=== PATIENT | male | born 1965 | race African-American/Black ===

== ENCOUNTER 2018-04-29 17:32 | Emergency (ER) | payer OTHER ==
[2018-04-29 17:44] VITALS: BP 142/78; PULSE 92; TEMP 98; BMI 33.4
--- NOTE | 2018-04-29 17:46 | PDOC ---
Rapid Medical Evaluation Time Seen by Provider: 04/29/18 17:39 Medical Evaluation: Allergies Allergy/AdvReac Type Severity Reaction Status Date / Time No Known Allergies Allergy Verified 08/01/16 08:10 04/29/18 17:39 I have performed a brief in-person evaluation of this patient. The patient presents with a chief complaint of: Left rib pain X 3 days, no trauma or rash, no cp or SOB Pertinent physical exam findings:+ tenderness on palpation Left rib area, no rash I have ordered the following: EKG, cxr, labs/cardiac workup The patient will proceed to the fast track for further evaluation. 04/29/18 17:46
--- NOTE | 2018-05-01 13:05 | EKG ---
Test Reason : Blood Pressure : / mmHG Vent. Rate : 087 BPM Atrial Rate : 087 BPM P-R Int : 166 ms QRS Dur : 090 ms QT Int : 342 ms P-R-T Axes : 040 044 011 degrees QTc Int : 411 ms NORMAL SINUS RHYTHM NONSPECIFIC T WAVE ABNORMALITY ABNORMAL ECG WHEN COMPARED WITH ECG OF 01-AUG-2016 10:43, NO SIGNIFICANT CHANGE WAS FOUND Confirmed by JOVANY MCKEON MD ([id number]) on 05/01/2018 1:05:07 PM Referred By: Confirmed By:JOVANY MCKEON MD
== END 2018-04-29 22:02 | disposition left against medical advice (07) ==
LOC: JER 17:32
DX: Z53.21 Procedure and treatment not carried out due to patient leaving prior to being seen by health care provider (principal)
CPT/HCPCS: 93005; 93010; 99281-25

== ENCOUNTER 2018-05-17 17:11 | Emergency (ER) | payer OTHER ==
--- NOTE | 2018-05-17 17:39 | PDOC ---
Rapid Medical Evaluation Time Seen by Provider: 05/17/18 17:39 Medical Evaluation: Allergies Allergy/AdvReac Type Severity Reaction Status Date / Time No Known Allergies Allergy Verified 05/17/18 17:39 05/17/18 17:39 I have performed a brief in-person evaluation of this patient. The patient presents with a chief complaint of: L burning pain to L chest x 1 month, seen here 04/22 for same and LBME. EKG done at triage was unremarkable then per records. H/o NIDDM Pertinent physical exam findings:unremarkable I have ordered the following:ekg/labs/labs The patient will proceed to the ED for further evaluation. 05/17/18 17:41 05/17/18 17:42 Discharge Disposition - Diagnosis Left sided chest pain - Referrals - Patient Instructions - Post Discharge Activity
[2018-05-17 17:44] VITALS: BP 152/86; PULSE 90; TEMP 98.5; BMI 34.7
--- NOTE | 2018-05-17 18:37 | PDOC ---
History of Present Illness - General Chief Complaint: Pain Stated Complaint: LT RIBCAGE PAIN Time Seen by Provider: 05/17/18 17:39 History Source: Patient Exam Limitations: No Limitations - History of Present Illness Initial Comments: 52 YOM with h/o NIDDM on metformin who p/w constant non-radiating burning left sided chest pain (versus LUQ pain) for the past month which is worse with palpation/pushing on the area. He presented for similar symptoms to our ED on and had a triage EKG showing nothing acute, but he LBME. He notes occasional diarrhea but denies any fever, chills, nausea, vomiting, constipation , leg swelling, palpitations, SOB, headache, dizziness, sweats, rash, h/o smoking, family h/o heart disease, etc. He has not been taking any medications for the pain. Past History - Past Medical History Allergies/Adverse Reactions: Allergies Allergy/AdvReac Type Severity Reaction Status Date / Time No Known Allergies Allergy Verified 05/17/18 17:39 Home Medications: Ambulatory Orders metFORMIN HCL [Glucophage -] 500 mg PO BID 06/14/16 COPD: No Diabetes: Yes - Suicide/Smoking/Psychosocial Hx Smoking History: Never smoked Hx Alcohol Use: No Drug/Substance Use Hx: No Substance Use Type: None Review of Systems - Review of Systems Able to Perform ROS?: Yes Constitutional: No: Chills, Fever, Unexplained wgt Loss HEENTM: No: Nose Congestion, Throat Pain Respiratory: No: Cough, Shortness of Breath Cardiac (ROS): Yes: Chest Pain. No: Palpitations ABD/GI: Yes: Diarrhea. No: Constipated, Nausea, Vomiting : No: Burning, Dysuria Musculoskeletal: No: Back Pain, Neck Pain Integumentary: No: Bruising, Rash Neurological: No: Headache, Numbness, Tingling, Weakness, Dizziness Endocrine: No: Unexplained Weight Gain, Unexplained Weight Loss *Physical Exam - Vital Signs Last Vital Signs Temp Pulse Resp BP Pulse Ox 98.5 F 90 19 152/86 99 05/17/18 17:39 05/17/18 17:39 05/17/18 17:39 05/17/18 17:39 05/17/18 17:39 - Physical Exam General Appearance: Yes: Nourished, Appropriately Dressed, Other (nontoxic and well appearing adult male in no distress who answers questions appropriately). No: Apparent Distress HEENT: positive: EOMI, NIYAH, Normal ENT Inspection, Normal Voice, Hearing Grossly Normal. negative: Scleral Icterus (R), Scleral Icterus (L), Nasal Congestion Neck: positive: Trachea midline, Supple. negative: Tender, Rigid Respiratory/Chest: positive: Lungs Clear, Normal Breath Sounds. negative: Respiratory Distress, Crackles, Rhonchi, Stridor, Wheezing Cardiovascular: positive: Regular Rhythm, Regular Rate, S1, S2, Other (mild left inferior chest ttp). negative: Edema, JVD, Murmur Gastrointestinal/Abdominal: positive: Normal Bowel Sounds, Soft, Protuberent. negative: Tender (mild LUQ ttp), Organomegaly, Pulsatile Mass, Guarding Musculoskeletal: positive: Normal Inspection. negative: Decreased Range of Motion, Vertebral Tenderness Extremity: positive: Normal Capillary Refill, Normal Inspection, Normal Range of Motion. negative: Tender, Cyanosis Integumentary: positive: Normal Color, Dry, Warm. negative: Erythema, Rash, Bruising Neurologic: positive: dry cleaner II-XII NML intact, Fully Oriented, Alert, Normal Mood/ Affect, Normal Response, Motor Strength 5/5 Heart Score/ECG Review - History History: Slightly suspicious - Electrocardiogram EKG: Normal - Age Age: 45-65 - Risk Factors Risk Factors Heart Score: Yes Hx Diabetes, Yes Hx Obesity Based on the list above the patient has:: 1-2 risk factors - Troponin Troponin: </= normal limit - Score Heart Score - Total: 2 ED Treatment Course - LABORATORY CBC & Chemistry Diagram: 05/17/18 18:38 05/17/18 18:38 Medical Decision Making - Medical Decision Making Adult male Pt p/w left-sided abdominal pain. Initial Vital Signs Temp Pulse Resp BP Pulse Ox 98.5 F 90 19 152/86 99 05/17/18 17:39 05/17/18 17:39 05/17/18 17:39 05/17/18 17:39 05/17/18 17:39 Exam: Results as noted in Physical Exam section. DDX IBNLT: diverticulitis wwo abscess or perforation, colitis, ACS, atypical PNA , renal colic, obstructive uropathy, UTI/pyelonephritis, appendicitis, AAA/AD, hernia, malignancy, pancreatitis, gastritis, PUD, ACS, SBO, bowel ischemia, bowel perforation, cholecystitis, musculoskeletal, constipation, etc. W/U ordered: CBCD CMP Lipase Cardiac panel UA UCx TX ordered: Unlikely renal stone as Pt notes no clinical hematuria, has no CVA tenderness. Unlikely UTI/pyelonephritis as Pt has no dysuria, strange colors/smells, no h/o recurrent UTI. Unlikely diverticulitis as Pt has no known h/o diverticulosis/diverticulitis. Unlikely colitis as clinically Pts abdomen is not distended/no ascites, no fever, other VS wnl. Unlikely appendicitis as Pt has no fever, RLQ or umbilical abdominal pain, or anorexia. Unlikely AAA/AD as no midline pulsatile mass or h/o AAA/AD, denies h/o HTN or connective tissue d/o. Unlikely testicular torsion as Pt has no high-riding testicle, no tenderness, no testicular/scrotal swelling. Unlikely epididymitis or orchitis as Pt has no testicular or epididymis tenderness. Unlikely urethritis as Pt denies penile burning on urination, states little concern for STI, no hx reported. Unlikely hernia as Pt has no inguinal hernia on palpation with cough, no outwardly palpable hernia. Unlikely malignancy as Pt has no palpable mass, no reported recent B symptoms. Unlikely pancreatitis as Pt denies EtOH use, h/o gallstones, no known hypercalcemia. Unlikely gastritis as Pt denies h/o significant GERD, no overuse of EtOH. Unlikely PUD as Pt does not report relief of pain ~2 hours postprandially or with antacids. Unlikely ACS as Pt has few risk factors, no associated SOB or typical arm/neck radiation. Unlikely SBO as Pt has been passing stool and gas normally per their baseline. Unlikely mesenteric ischemia as Pt has no known A-fib or coagulopathy, no pain out of proportion. Unlikely bowel perforation as Pt does not appear to have acute abdomen, no peritoneal signs. Unlikely cholecystitis as no postprandial worsening. US: Labs: Reassessment: Repeat VS: ADMIT The Pts symptoms persist despite ED treatments. The Pt is unsafe for discharge at this time. They require further hospital observation, workup, and treatment. Microblog sent to [facility] for admission. Spoke with [facility], in agreement Pt to be admitted to Decision to Admit order placed to covering attending DISCHARGE The Pt has gotten significant relief of symptoms with ED medications. Workup is not concerning for emergency-level pathology at this time. The Pt is appropriate for discharge with close outpatient follow up. They are comfortable with this plan and will follow up with their PCP in 1-3 days. Specific return precautions are discussed and they will come back to the ER if necessary. *DC/Admit/Observation/Transfer Diagnosis at time of Disposition: Left sided chest pain - Discharge Dispostion Disposition: HOME Condition at time of disposition: Stable Decision to Admit order: No - Referrals Referrals: ON STAFF,NOT [Primary Care Provider] - - Patient Instructions Printed Discharge Instructions: DI for Chest Pain Additional Instructions: You were seen in the ER for chest/rib pain. We did lab work on your blood and urine, an electrocardiogram, and a chest x-ray, and we did not find any concerning abnormalities. After our assessment, we do not believe you are having a medical emergency at this time, and we believe you are safe to go home. Take over the counter pain medications for your pain, as instructed on the medication label. Please follow up with your regular PCP doctor in 1-3 days. Call their clinic as soon as possible, tell them you were seen in the ER, and tell them you need an appointment. If you have any new or worsening symptoms , especially worsening chest pain, jaw pain, shoulder/arm pain, shortness of breath, sweats, nausea, loss of consciousness, palpitations, fever, chills, diarrhea, rectal bleeding, or other symptoms, please come back to the ER at any time (24 hours a day). If you are having severe or life threatening symptoms, or symptoms that make it unsafe to drive or have someone drive you, please call 911. - Post Discharge Activity
[2018-05-17 18:50] LABS: BASO % 0.1 % (0-2.0); HEMATOCRIT 41.1 % (35.4-49); HEMOGLOBIN 13.9 GM/dL (11.7-16.9); LYMPH % 39.5 % (8-40); MCH 29.3 pg (25.7-33.7); MCHC 33.8 g/dl (32.0-35.9); MEAN CELL VOLUME 86.6 fl (80-96); MEAN PLT VOLUME 8.8 fl (7.5-11.1); MONO % 11.1 % (3.8-10.2); NEUT % 45.3 % (42.8-82.8); PLATELET COUNT 229 K/MM3 (134-434); RBC 4.74 M/mm3 (4.00-5.60); RDW 13.1 % (11.9-15.9); WHITE BLOOD COUNT 5.2 K/mm3 (4.0-10.0)
[2018-05-17 19:47] LABS: ALBUMIN 3.8 g/dl (3.4-5.0); ANION GAP 10 (8-16); BLOOD UREA NITROGEN 12 mg/dL (7-18); CALCIUM 9.2 mg/dL (8.5-10.1); CHLORIDE 103 mmol/L (98-107); CO2 28 mmol/L (21-32); GLUCOSE,RANDOM 240 mg/dL (74-106); SGOT/AST 13 U/L (15-37); SGPT/ALT 21 U/L (12-78); SODIUM 141 mmol/L (136-145)
[2018-05-17 19:50] LABS: ALK PHOS 87 U/L (45-117); BILIRUBIN,TOTAL 0.7 mg/dL (0.2-1.0); TOT PROT 7.7 g/dl (6.4-8.2)
--- NOTE | 2018-05-17 19:50 | PDOC ---
Attending Attestation - Resident Resident Name: EmileNiki - ED Attending Attestation I have performed the following: I have examined & evaluated the patient, The case was reviewed & discussed with the resident, I agree w/resident's findings & plan - HPI HPI: 05/17/18 19:44 52-year-old male with history of well-controlled diabetes presents with about 3 weeks of constant left rib pain. Patient presented here on 04/27, had an EKG but than left before full evaluation. Reports noting very localized left anterior lower rib discomfort without rash or swelling, not positional, and not associated with any cardiopulmonary, GI (baseline loose stool because he drinks a lot of prune juice, nonbloody), or complaints. He has not taken anything for pain, presents for evaluation. never had egd/c-scope, no h/o rib injury. - Physicial Exam PE: 05/17/18 19:47 Vital signs normal Very well-appearing, comfortable and speaking full sentences Lungs are clear, heart is regular Very localized pinpoint discomfort over the anterolateral left lower floating ribs around ribs 10, no crepitus or deformity or step-off. No rash. No bruising or soft tissue swelling. No CVA tenderness, the abdomen is completely nontender without guarding or rebound - Medical Decision Making 05/17/18 19:47 52-year-old male with 3 weeks of very localized left rib pain, no other red flags on history or physical exam. Symptoms and signs localized to the left rib , which may be consistent with rib bruise versus cartilage bruise/fracture. No pulmonary or intra-abdominal findings. We'll check labs and urinalysis, EKG and chest x-ray If above is within normal limits, no indication for emergent imaging Would trial course of NSAIDs and PMD follow-up Heart Score/ECG Review #1 ECG reviewed & interpreted by me at: 18:38 General ECG Interpretation: Sinus Rhythm, Normal Rate (81), Normal Intervals ( qtc 408), No acute ischemic changes
--- NOTE | 2018-05-20 20:24 | EKG ---
Test Reason : Blood Pressure : / mmHG Vent. Rate : 081 BPM Atrial Rate : 081 BPM P-R Int : 170 ms QRS Dur : 092 ms QT Int : 352 ms P-R-T Axes : 036 026 016 degrees QTc Int : 408 ms NORMAL SINUS RHYTHM NORMAL ECG WHEN COMPARED WITH ECG OF 29-APR-2018 17:51, NO SIGNIFICANT CHANGE WAS FOUND Confirmed by MD YKLE, ADRIENNE ([id number]) on 05/20/2018 8:24:33 PM Referred By: Confirmed By:ADRIENNE WRIGHT MD
== END 2018-05-17 20:38 | disposition home or self-care (01) ==
LOC: JER 17:11
DX: R07.89 Other chest pain (principal); E11.9 Type 2 diabetes mellitus without complications; Z79.84 Long term (current) use of oral hypoglycemic drugs
CPT/HCPCS: 36415; 71046-TC-FY; 80053; 82550; 83690; 84484; 85025; 93005; 93010; 99284-25

== ENCOUNTER 2019-01-03 16:14 | Emergency (ER) | payer OTHER ==
--- NOTE | 2019-01-03 16:32 | PDOC ---
Rapid Medical Evaluation Chief Complaint: Injury Time Seen by Provider: 01/03/19 16:31 Medical Evaluation: Allergies Allergy/AdvReac Type Severity Reaction Status Date / Time No Known Allergies Allergy Verified 01/03/19 16:31 01/03/19 16:31 I have performed a brief in-person evaluation of this patient. The patient presents with a chief complaint of: S[place]IV[place] s/p mechanical fall Pertinent physical exam findings:NAD I have ordered the following:CT The patient will proceed to the ED for further evaluation. Discharge Disposition - Diagnosis Closed head injury - Referrals - Patient Instructions - Post Discharge Activity
[2019-01-03 16:34] VITALS: BP 122/83; PULSE 73; TEMP 98.2
[2019-01-03] MEDS ORDERED: IBUPROFEN 600 MG TABLET (FP) PO ONE ×2 (18:11→18:12)
--- NOTE | 2019-01-03 18:11 | PDOC ---
History of Present Illness - General Chief Complaint: Injury Stated Complaint: FALL/HITTING BK OF THE HEAD Time Seen by Provider: 01/03/19 16:31 History Source: Patient Exam Limitations: No Limitations - History of Present Illness Initial Comments: 01/03/19 19:20 Patient is a 53-year-old male past medical history of hypertension, who presents to the emergency department today status post slip and fall at home. Patient states he was in the bathtub when he slipped and hit the back of his head on the tub. Denies loss of consciousness, dizziness and lightheadedness. Patient did not vomit today. He states that he still has a headache to the occipital region. , Past History - Travel Traveled outside of the country in the last 30 days: No Close contact w/someone who was outside of country & ill: No - Past Medical History Allergies/Adverse Reactions: Allergies Allergy/AdvReac Type Severity Reaction Status Date / Time No Known Allergies Allergy Verified 01/03/19 16:31 Home Medications: Ambulatory Orders metFORMIN HCL [Glucophage -] 500 mg PO BID 06/14/16 COPD: No Diabetes: Yes (NIDM) - Suicide/Smoking/Psychosocial Hx Smoking History: Never smoked Information on smoking cessation initiated: No Hx Alcohol Use: No Drug/Substance Use Hx: No Substance Use Type: None Review of Systems - Review of Systems Able to Perform ROS?: Yes Comments:: 01/03/19 18:08 CONSTITUTIONAL: Absent: fever, chills, diaphoresis, generalized weakness, malaise, loss of appetite HEENT: Absent: rhinorrhea, nasal congestion, throat pain, throat swelling, difficulty swallowing, mouth swelling, ear pain, eye pain, visual Changes CARDIOVASCULAR: Absent: chest pain, loss of consciousness, palpitations, irregular heart rate, peripheral edema RESPIRATORY: Absent: cough, shortness of breath, dyspnea with exertion, orthopnea, wheezing, stridor, hemoptysis GASTROINTESTINAL: Absent: abdominal pain, abdominal distension, nausea, vomiting, diarrhea, constipation, melena, hematochezia GENITOURINARY: Absent: dysuria, frequency, urgency, hesitancy, hematuria, flank pain, genital pain MUSCULOSKELETAL: Absent: myalgia, arthralgia, joint swelling SKIN: Absent: rash, itching, pallor HEMATOLOGIC/IMMUNOLOGIC: Absent: easy bleeding, easy bruising, lymphadenopathy, frequent infections ENDOCRINE: Absent: unexplained weight gain, unexplained weight loss, heat intolerance, cold intolerance NEUROLOGIC: Present: headache Absent: focal weakness or paresthesias, dizziness, unsteady gait, seizure, mental status changes, bladder or bowel incontinence PSYCHIATRIC: Absent: anxiety, depression, suicidal or homicidal ideation, hallucinations. Is the patient limited Mauritian proficient: No *Physical Exam - Vital Signs Last Vital Signs Temp Pulse Resp BP Pulse Ox 98.2 F 73 17 122/83 100 01/03/19 16:32 01/03/19 16:32 01/03/19 16:32 01/03/19 16:32 01/03/19 16:32 - Physical Exam Comments: 01/03/19 18:08 GENERAL: Well developed, well nourished. Awake and alert. No acute distress. HEENT: Normocephalic, atraumatic. PERRLA, EOMI. No conjunctival pallor. Sclera are non- icteric. Moist mucous membranes. Oropharynx is clear. NECK: Supple. Full ROM. No JVD. Carotid pulses 2+ and symmetric, without bruits. No thyromegaly. No lymphadenopathy. CARDIOVASCULAR: Regular rate and rhythm. No murmurs, rubs, or gallops. Distal pulses are 2+ and symmetric. PULMONARY: No evidence of respiratory distress. Lungs clear to auscultation bilaterally. No wheezing, rales or rhonchi. ABDOMINAL: Soft. Non-tender. Non-distended. No rebound or guarding. No organomegaly. Normoactive bowel sounds. MUSCULOSKELETAL Normal range of motion at all joints. No bony deformities or tenderness. No CVA tenderness. EXTREMITIES: No cyanosis. No clubbing. No edema. No calf tenderness. SKIN: Warm and dry. Normal capillary refill. No rashes. No jaundice. NEUROLOGICAL: Alert, awake, appropriate. Cranial nerves 2-12 intact. No deficits to light touch and temperature in face, upper extremities and lower extremities. No motor deficits in the in face, upper extremities and lower extremities. Normoreflexic in the upper and lower extremities. Normal speech. Toes are down- going bilaterally. Gait is normal without ataxia. PSYCHIATRIC: Cooperative. Good eye contact. Appropriate mood and affect. Moderate Sedation - Procedure Monitoring Vital Signs: Procedure Monitoring Vital Signs Temperature 98.2 F 01/03/19 16:32 Pulse Rate 73 01/03/19 16:32 Respiratory Rate 17 01/03/19 16:32 Blood Pressure 122/83 01/03/19 16:32 O2 Sat by Pulse Oximetry (%) 100 01/03/19 16:32 Medical Decision Making - Medical Decision Making 01/03/19 19:21 Patient is a 53-year-old male who presents to the ER for headache status post slip and fall at home. Patient is neurologically intact with no focal deficits. No LOC at time of fall. Head CT ordered from [facility] is negative for acute pathology or fracture. Motrin given with relief of symptoms. Possible concussion. Discharge home with neurology follow-up. I discussed the physical exam findings, ancillary test results and final diagnoses with the patient. I answered all of the patient's questions. The patient was satisfied with the care received and felt comfortable with the discharge plan and treatment plan. The Patient agrees to follow up with the primary care physician/specialist within 24-72 hours. Return precautions were given. *DC/Admit/Observation/Transfer Diagnosis at time of Disposition: Closed head injury Qualifiers: Encounter type: initial encounter Qualified Code(s): S09.90XA - Unspecified injury of head, initial encounter Fall Qualifiers: Encounter type: initial encounter Qualified Code(s): W19.XXXA - Unspecified fall, initial encounter - Discharge Dispostion Disposition: HOME Condition at time of disposition: Stable Decision to Admit order: No - Referrals Referrals: Roddy You DO [Staff Physician] - - Patient Instructions Printed Discharge Instructions: DI for Closed Head Injury Additional Instructions: You were evaluated for your fall today. Your CAT scan was normal. There are no broken bones or brain bleeds. You may take Motrin 600 mg every 6 hours as needed for pain. Please avoid screens for the next 24-48 hours to help with her headache. Your symptoms do not resolve in a week please follow-up with neurology as this could be a concussion. Return to the ER for worsening headache, weakness, dizziness or if you have any changes in your symptoms. - Post Discharge Activity Forms/Work/School Notes: Back to Work
== END 2019-01-03 18:15 | disposition home or self-care (01) ==
LOC: JERFT 16:14
DX: R51 Headache (principal); S09.8XXA Other specified injuries of head, initial encounter; W18.2XXA Fall in (into) shower or empty bathtub, initial encounter; Y93.E1 Activity, personal bathing and showering; Y92.031 Bathroom in apartment as the place of occurrence of the external cause; Y99.8 Other external cause status
CPT/HCPCS: 70450-TC; 99281-25

== ENCOUNTER 2020-01-12 11:20 | Emergency (ER) | payer OTHER ==
[2020-01-12 11:45] VITALS: BP 150/75; PULSE 94; TEMP 98.5; BMI 32.2
--- NOTE | 2020-01-12 12:11 | PDOC ---
History of Present Illness - General Chief Complaint: Cold Symptoms Stated Complaint: COLD SYMPTOMS Time Seen by Provider: 01/12/20 11:46 History Source: Patient Exam Limitations: No Limitations - History of Present Illness Initial Comments: 01/12/20 12:08 54 year old male with medical history of DM and no surgical history presents with complaints of dry cough, chest pain with forceful coughing, fever, and headaches x 3 days. Denies sore throat, travel or ill contacts Is this a multiple visit Asthma Patient?: No Timing/Duration: reports: other (3 days) Severity: reports: mild Possible Cause: Yes: no prior episodes Modifying Factors: improves with: other Associated Symptoms: reports: cough, fever/chills. denies: sore throat Past History - Travel Traveled outside of the country in the last 30 days: No Close contact w/someone who was outside of country & ill: No - Past Medical History Allergies/Adverse Reactions: Allergies Allergy/AdvReac Type Severity Reaction Status Date / Time No Known Allergies Allergy Verified 01/03/19 16:31 Home Medications: Ambulatory Orders metFORMIN HCL [Glucophage -] 500 mg PO BID 06/14/16 Guaifenesin Dm [Robitussin Dm -] 10 ml PO Q8H #1 bottle 01/12/20 Ibuprofen 600 mg PO TID #21 tablet 01/12/20 Oseltamivir Phosphate [Tamiflu -] 75 mg PO BID #10 capsule 01/12/20 COPD: No Diabetes: Yes (NIDM) - Psycho Social/Smoking Cessation Hx Smoking History: Never smoked Information on smoking cessation initiated: No Hx Alcohol Use: No Drug/Substance Use Hx: No Substance Use Type: None Respiratory Specific PMHX - Complaint Specific PMHX Hx Airway Support: No Hx Asthma: No Hx Vaping: No Hx Exposure to Respiratory Irritants: No Hx Pneumonia: No Hx Pulmonary Embolus: No Review of Systems - Review of Systems Able to Perform ROS?: Yes Is the patient limited Malay proficient: No Constitutional: Yes: Chills, Fever, Malaise HEENTM: Yes: Nose Congestion. No: Throat Pain Respiratory: Yes: Cough. No: Shortness of Breath, Productive cough Cardiac (ROS): Yes: Chest Pain (with coughing ) ABD/GI: No: Constipated, Diarrhea, Poor Appetite : No: Dysuria, Discharge, Incontinence Musculoskeletal: No: Back Pain, Gout, Joint Pain, Muscle Pain Integumentary: No: Bruising, Change in Color, Dryness, Erythema Neurological: No: Headache, Numbness Psychiatric: No: Frequent Crying *Physical Exam - Vital Signs Last Vital Signs Temp Pulse Resp BP Pulse Ox 98.5 F 94 H 17 150/75 98 01/12/20 11:42 01/12/20 11:42 01/12/20 11:42 01/12/20 11:42 01/12/20 11:42 - Physical Exam General Appearance: Yes: Nourished, Appropriately Dressed HEENT: positive: TMs Normal, Pharynx Normal. negative: Rhinorrhea Neck: positive: Supple. negative: Lymphadenopathy (R), Lymphadenopathy (L) Respiratory/Chest: positive: Lungs Clear Cardiovascular: positive: Regular Rhythm, Regular Rate Extremity: positive: Normal Capillary Refill Neurologic: positive: Fully Oriented, Alert Medical Decision Making - Medical Decision Making 01/12/20 12:15 54 year old male with medical history of DM and no surgical history presents with complaints of dry cough, chest pain with forceful coughing, fever, and headaches x 3 days. Denies sore throat, travel or ill contacts Flu-like symptoms -ekg -ibuprofen -flu swab 01/12/20 12:50 + influenza A rx: robitussin ibuprofen tamiflu Discharge - Discharge Information Problems reviewed: Yes Clinical Impression/Diagnosis: Influenza A Condition: Good Disposition: HOME - Admission No - Additional Discharge Information Prescriptions: Ibuprofen 600 mg PO TID #21 tablet Guaifenesin Dm [Robitussin Dm -] 10 ml PO Q8H #1 bottle Oseltamivir Phosphate [Tamiflu -] 75 mg PO BID #10 capsule - Follow up/Referral Referrals: Trang Jansen MD [Primary Care Provider] - (call for follow up appointmen t ) - Patient Discharge Instructions Patient Printed Discharge Instructions: Influenza Additional Instructions: Rest Drink plenty fluids Avoid children, elderly and females May take ibuprofen for body aches - Post Discharge Activity Work/Back to School Note: Back to Work
[2020-01-12] MEDS ORDERED: IBUPROFEN 600 MG TABLET (FP) PO ONE ×2 (12:15→12:18)
--- NOTE | 2020-01-12 13:55 | EKG ---
Test Reason : Blood Pressure : / mmHG Vent. Rate : 090 BPM Atrial Rate : 090 BPM P-R Int : 160 ms QRS Dur : 090 ms QT Int : 334 ms P-R-T Axes : 050 062 037 degrees QTc Int : 408 ms NORMAL SINUS RHYTHM NORMAL ECG WHEN COMPARED WITH ECG OF 17-MAY-2018 18:38, NO SIGNIFICANT CHANGE WAS FOUND Confirmed by Melania Kaufman ([id number]) on 01/12/2020 1:54:57 PM Referred By: Confirmed By:Melania Kaufman
== END 2020-01-12 13:00 | disposition home or self-care (01) ==
LOC: JERFT 11:20
DX: J09.X2 Influenza due to identified novel influenza A virus with other respiratory manifestations (principal); E11.9 Type 2 diabetes mellitus without complications; Z79.84 Long term (current) use of oral hypoglycemic drugs
CPT/HCPCS: 87804; 93005; 93010; 99283-25

== ENCOUNTER 2021-07-23 18:38 | Emergency (ER) | payer OTHER ==
[2021-07-23 18:45] VITALS: BP 151/95; PULSE 106; TEMP 98.4; BMI 33.6
[2021-07-23] MEDS ORDERED: ACETAMINOPHEN 1000 MG/100 ML VIAL (NON FORMULARY) IVPB ONE (20:20)
[2021-07-23] MEDS ORDERED: LACTATED RINGERS SOLUTION 1000 ML INFUS.BAG IV ONE (20:20)
[2021-07-23] MEDS ORDERED: ACETAMINOPHEN INJECTION 100 ML IVPB ONE (20:28)
[2021-07-23 20:29] LABS: BASO % 0.3 % (0-2.0); EOS % 4.4 % (0-4.5); HEMOGLOBIN 14.5 GM/dL (11.7-16.9); LYMPH % 38.5 % (8-40); MCH 30.6 pg (25.7-33.7); MCHC 35.3 g/dl (32.0-35.9); MEAN CELL VOLUME 86.8 fl (80-96); MEAN PLT VOLUME 8.6 fl (7.5-11.1); MONO % 11.7 % (3.8-10.2); NEUT % 45.1 % (42.8-82.8); PLATELET COUNT 201 10^3/uL (134-434); RBC 4.72 M/mm3 (4.00-5.60); WHITE BLOOD COUNT 5.2 K/mm3 (4.0-10.0)
[2021-07-23 20:45] LABS: URINE APPEARANCE CLEAR; URINE BILIRUBIN NEGATIVE (NEGATIVE); URINE COLOR YELLOW; URINE GLUCOSE (UA) NEGATIVE (NEGATIVE); URINE KETONE NEGATIVE (NEGATIVE); URINE LEUK ESTERASE NEGATIVE (NEGATIVE); URINE NITRITE NEGATIVE (NEGATIVE); URINE PROTEIN NEGATIVE (NEGATIVE)
[2021-07-23 20:48] LABS: CHLORIDE 103 mmol/L (98-107); SODIUM 136 mmol/L (136-145)
[2021-07-23 20:50] LABS: ALBUMIN 3.6 g/dl (3.4-5.0); ANION GAP 6 MMOL/L (8-16); BLOOD UREA NITROGEN 10.1 mg/dL (7-18); CO2 27 mmol/L (21-32)
[2021-07-23 20:51] LABS: GLUCOSE,RANDOM 140 mg/dL (74-106)
[2021-07-23 20:53] LABS: SGOT/AST 34 U/L (15-37); SGPT/ALT 32 U/L (13-61)
[2021-07-23 20:54] LABS: CREATININE 0.9 mg/dL (0.55-1.3)
[2021-07-23 20:55] LABS: BILIRUBIN,TOTAL 1.2 mg/dL (0.2-1)
[2021-07-23 20:56] LABS: ALK PHOS 75 U/L (45-117)
== END 2021-07-23 23:35 | disposition home or self-care (01) ==
LOC: JER 18:38
PROC: 3E033NZ Introduction of Analgesics, Hypnotics, Sedatives into Peripheral Vein, Percutaneous Approach (ICD-10-PCS; principal; 2021-07-23)
DX: R51.9 Headache, unspecified (principal); R42 Dizziness and giddiness
CPT/HCPCS: 36415; 70450-TC; 80053; 81003; 82550; 82553; 84484; 85025; 93005; 93010; 99285-25; J0131

== ENCOUNTER 2023-10-10 08:40 | Emergency (ER) | payer OTHER, BC ==
[2023-10-10 08:53] VITALS: BP 140/82; PULSE 90; RESP 18; TEMP 98.2; BMI 34.2
[2023-10-10 10:41] LABS: THROAT:GRP A STREP NOT DETECTED (NOTDETECTED)
== END 2023-10-10 10:05 | disposition home or self-care (01) ==
LOC: JER 08:40
DX: R51.9 Headache, unspecified (principal); R09.81 Nasal congestion; M79.10 Myalgia, unspecified site; J06.9 Acute upper respiratory infection, unspecified; Z20.822 Contact with and (suspected) exposure to COVID-19
CPT/HCPCS: 0241U-QW; 87651; 99283-25

== ENCOUNTER 2024-03-18 11:31 | Emergency (ER) | payer OTHER, BC ==
[2024-03-18 11:40] VITALS: BP 149/86; PULSE 96; RESP 18; TEMP 98.2; BMI 34.4
[2024-03-18] MEDS ORDERED: ACETAMINOPHEN 500 MG TABLET (FP) ONE ×2 (12:07→12:08)
[2024-03-18] MEDS: ACETAMINOPHEN 500 MG TABLET (FP) PO ONE (12:09)
== END 2024-03-18 13:58 | disposition home or self-care (01) ==
LOC: JERFT 11:31
DX: M25.561 Pain in right knee (principal); X50.0XXA Overexertion from strenuous movement or load, initial encounter; Y93.02 Activity, running
CPT/HCPCS: 73562-TC-RT-FY; 99283-25

== ENCOUNTER 2024-04-12 08:24 | Emergency (ER) | payer OTHER, BC ==
[2024-04-12 08:40] VITALS: BP 150/74; PULSE 88; RESP 18; TEMP 98.6; BMI 34.9
[2024-04-12 10:12] LABS: BASO % 0.5 % (0-2.0); EOS % 7.1 % (0-4.5); HEMATOCRIT 45.4 % (35.4-49); HEMOGLOBIN 15.3 GM/dL (11.7-16.9); LYMPH % 25.5 % (8-40); MCH 29.6 pg (25.7-33.7); MCHC 33.7 g/dl (32.0-35.9); MEAN CELL VOLUME 87.9 fl (80-96); MEAN PLT VOLUME 8.5 fl (7.5-11.1); MONO % 8.2 % (3.8-10.2); NEUT % 58.7 % (42.8-82.8); PLATELET COUNT 250 10^3/uL (134-434); RBC 5.17 M/mm3 (4.00-5.60); RDW 13.7 % (11.9-15.9); WHITE BLOOD COUNT 5.6 K/mm3 (4.0-10.0)
[2024-04-12 10:20] LABS: INR 0.92 (0.83-1.09); PROTHROMBIN TIME (PATIENT) 10.6 SEC (9.7-13.0)
[2024-04-12 10:23] LABS: ACTIVATED PTT 31.6 SECONDS (25.2-36.5)
[2024-04-12 10:32] LABS: POTASSIUM 4.1 mmol/L (3.5-5.1)
[2024-04-12 10:34] LABS: ALBUMIN 3.8 g/dl (3.4-5.0); CALCIUM 8.9 mg/dL (8.5-10.1)
[2024-04-12 10:39] LABS: BILIRUBIN,TOTAL 0.8 mg/dL (0.2-1); TOT PROT 7.9 g/dl (6.4-8.2)
== END 2024-04-12 12:07 | disposition home or self-care (01) ==
LOC: JER 08:24
DX: R60.0 Localized edema (principal); M71.21 Synovial cyst of popliteal space [Baker], right knee
CPT/HCPCS: 36415; 80053; 85025; 85610; 85730; 93005; 93010; 93971-TC; 99285-25

== ENCOUNTER 2024-09-08 12:59 | Emergency (ER) | payer OTHER, BC ==
[2024-09-08 13:35] VITALS: TEMP 98.2; BMI 34.4
[2024-09-08 14:50] LABS: BASO % 0.4 % (0-2.0); EOS % 3.9 % (0-4.5); HEMATOCRIT 44.8 % (35.4-49); HEMOGLOBIN 15.1 GM/dL (11.7-16.9); LYMPH % 34.5 % (8-40); MCH 29.8 pg (25.7-33.7); MCHC 33.7 g/dl (32.0-35.9); MEAN CELL VOLUME 88.4 fl (80-96); MEAN PLT VOLUME 8.7 fl (7.5-11.1); MONO % 10.3 % (3.8-10.2); NEUT % 50.9 % (42.8-82.8); PLATELET COUNT 236 10^3/uL (134-434); RBC 5.06 M/mm3 (4.00-5.60); RDW 13.2 % (11.9-15.9); WHITE BLOOD COUNT 6.3 K/mm3 (4.0-10.0)
[2024-09-08 14:57] LABS: INR 0.96 (0.83-1.09)
[2024-09-08 15:00] LABS: ACTIVATED PTT 30.1 SECONDS (25.2-36.5)
[2024-09-08 15:07] LABS: POTASSIUM 4.7 mmol/L (3.5-5.1)
[2024-09-08 15:11] LABS: ALBUMIN 3.9 g/dl (3.4-5.0); BLOOD UREA NITROGEN 16.3 mg/dL (7-18); CALCIUM 10.1 mg/dL (8.5-10.1)
[2024-09-08 15:15] LABS: CREATININE 0.9 mg/dL (0.55-1.3)
[2024-09-08 15:16] LABS: BILIRUBIN,TOTAL 0.8 mg/dL (0.2-1); TOT PROT 8.3 g/dl (6.4-8.2)
[2024-09-08 15:46] VITALS: BP 130/82; PULSE 71; RESP 17
== END 2024-09-08 15:59 | disposition home or self-care (01) ==
LOC: JER 12:59
DX: K62.5 Hemorrhage of anus and rectum (principal)
CPT/HCPCS: 36415; 80053; 82272; 85025; 85610; 85730; 86850; 86900; 86901; 99283-25